=== PATIENT | female | born 1945 | race Hispanic/Latino ===

== ENCOUNTER 2018-12-17 06:08 | Day surgery (SDC) | payer MEDICARE, OTHER ==
[2018-12-13 17:15] VITALS: BMI 24.5
[2018-12-17] MEDS ORDERED: Lidocaine 1% Inj (20ml) ONE ×2 (07:33→07:34)
[2018-12-17] MEDS ORDERED: Propofol 10 mg/ml Inj (20 ML) ONE (07:33)
[2018-12-17] MEDS ORDERED: Bupivacaine 0.5% 50 ML IJ ONE (07:34)
[2018-12-17] MEDS ORDERED: ePHEDrine 50 mg/ml Inj ONE (07:54)
[2018-12-17] MEDS ORDERED: Nitroglycerin 2% Ointment Foilpak UD TOP ONE (08:27)
[2018-12-17] MEDS ORDERED: Oxycodone/Acetaminophen 5/325 mg Tab PO PRN (08:39)
--- NOTE | 2018-12-17 08:40 | PCM.SURG1 ---
Surgeon's Initial Post Op Note - Surgeon's Notes Surgeon: Shara Ribera MD Stone Polisher Hand: Gina Hand Pa-C Type of Anesthesia: General Endo Anesthesia Administered By: Dr. Abraham Pre-Operative Diagnosis: R CTS Operative Findings: see full note Post-Operative Diagnosis: same Operation Performed: R CTR Specimen/Specimens Removed: none Estimated Blood Loss: EBL {In ML}: 1 Blood Products Given: N/A Drains Used: No Drains Post-Op Condition: Fair Date of Surgery/Procedure: 12/17/18 Time of Surgery/Procedure: 08:40
[2018-12-17] MEDS ORDERED: HYDROmorphone 0.5 mg/0.5 ml ISec IVP PRN (08:44)
[2018-12-17] MEDS ORDERED: Lactated Ringer's 1,000 ML IV SCH (08:45)
[2018-12-17 09:47] VITALS: RESP 18; TEMP 97.8; O2SAT 94
[2018-12-17 11:00] VITALS: BP 121/65; PULSE 90
--- NOTE | 2018-12-17 15:43 | OP ---
PROCEDURE DATE: 12/17/2018 PREOPERATIVE DIAGNOSIS: Right carpal tunnel syndrome. POSTOPERATIVE DIAGNOSIS: Right carpal tunnel syndrome. PROCEDURE: Right carpal tunnel release. SURGEON: Roddy Ribera MD. TIMBER MILL WORKER: Dr. Ribera was assisted by Jaqui Brian. TYPE OF ANESTHESIA: General. COMPLICATIONS: None. ESTIMATED BLOOD LOSS: 2 mL. TOURNIQUET TIME: 21 minutes at 250 mmHg. INDICATIONS FOR PROCEDURE: This is a 73-year-old female with longstanding right hand pain and numbness. Clinical examination was consistent with positive Tinel's and nerve compression testing with a carpal tunnel and decreased soft touch over the median nerve distribution. EMG and nerve conduction studies were consistent with right carpal tunnel syndrome. After a period of failed nonsurgical management, recommendation for a right carpal tunnel release. Risks, benefits and alternatives of the procedure were discussed with the patient including the possibility of permanent nerve damage and persistent pain and numbness and informed consent was obtained. OPERATIVE PROCEDURE: After the surgical site was signed and verified in the preoperative holding area, the patient was taken to the operating room and placed supine on the operating room table. After administration of general anesthesia, the patient received 1 g of Ancef IV. A tourniquet was placed about the right arm. Care was taken to make sure all bony prominences and nerves were well padded and protected and the right upper extremity was prepped and draped in the usual sterile fashion. The tourniquet was inflated and bony landmarks were identified about the right wrist and hand and approximately 2.5 cm incision was made over the palmar aspect of the hand. Soft tissue was dissected bluntly down to the transverse carpal ligament. Carpal ligament was incised, exposing the median nerve, which appeared intact and in continuity. Satisfied that the nerve had adequately decompressed, the wound was irrigated and closed using interrupted 4-0 nylon suture. A sterile bulky dressing was applied. The patient was awakened from procedure, taken to the recovery room in stable condition. Roddy Ribera MD
== END 2018-12-17 12:00 | disposition home or self-care (01) ==
LOC: SDS 06:08
PROVIDERS: ATTEND Orthopaedic Surgery
DX: G56.01 Carpal tunnel syndrome, right upper limb (principal); I10 Essential (primary) hypertension; I25.10 Atherosclerotic heart disease of native coronary artery without angina pectoris
CPT/HCPCS: 64721; J0690; J1170; J2405; J2704; J3010; J7120 ×2